=== PATIENT | female | born 1995 | race Caucasian/White ===

== ENCOUNTER 2017-05-15 23:29 | Emergency (ER) | payer SELFPAY ==
[2017-05-16] MEDS ORDERED: IPRATROPIUM/ALBUTEROL 0.5-2.5 MG/3 ML AMPUL NEB ONE (00:08)
[2017-05-16] MEDS ORDERED: KETOROLAC TROMETHAMINE 60 MG/2 ML SDV IM ONE (00:08)
--- NOTE | 2017-05-16 00:12 | ER Document Report ---
ED Flu Like - General Chief Complaint: Flu Symptoms Stated Complaint: BODY ACHES,FEVER Time Seen by Provider: 05/16/17 00:02 Mode of Arrival: Ambulatory Information source: Patient TRAVEL OUTSIDE OF THE [place] IN LAST 30 DAYS: No - HPI Onset: Other - 3 days Timing/Duration: Sudden Quality of pain: Achy, Burning Severity: Moderate Notes: Patient arrives with complaints of "flulike symptoms". Patient states that for the last 3 days she has had fever, body aches, fatigue, nausea, cough, sore throat. She has vomited a few times, but denies any vomiting today. She denies any abdominal pain. She denies any rashes. States that she occasionally has some chest pain when she coughs or takes a deep breath. She denies any significant shortness of breath. She denies any recent long trips, recent surgeries, leg pain or leg swelling, hormones, history of cancer, history of DVT or PE. She is PERC rule negative for PE. She denies any dysuria or hematuria. She denies any significant headache, blurred vision, numbness tingling or weakness. She denies any other complaints at this time. - Related Data Allergies/Adverse Reactions: No Known Allergies Allergy (Verified 04/02/14 22:26) Past Medical History - Social History Smoking Status: Current Every Day Smoker Family History: CAD, CVA, DM, Hyperlipidemia, Hypertension, Malignancy, Thyroid Disfunction Pulmonary Medical History: Reports: Hx Asthma - Childhood Renal/ Medical History: Reports: Hx Ovarian Cysts GI Medical History: Reports: Hx Gastroesophageal Reflux Disease Musculoskeltal Medical History: Reports Hx Arthritis Past Surgical History: Reports: Hx Adenoidectomy, Hx Oral Surgery, Hx Tonsillectomy - Immunizations Immunizations up to date: Yes Hx Diphtheria, Pertussis, Tetanus Vaccination: Yes Review of Systems - Review of Systems -: Yes All other systems reviewed and negative Physical Exam - Vital signs Vitals: Temp 98.6 F 05/16/17 01:15 - Notes Notes: GENERAL: alert, cooperative, nontoxic, no distress. HEAD: normocephalic, atraumatic EYES: conjunctiva pink without discharge, no external redness or swelling. EARS: no external swelling, no external redness, no mastoid redness, swelling, tenderness. Ear canals are clear without swelling or drainage. TMs pearly arzola , no redness, no bulging, normal landmarks, no perforation. NOSE: atraumatic, no external swelling. clear rhinorrhea noted. MOUTH/THROAT: mucous membranes moist and pink, posterior pharynx without erythema, swelling, exudate. No trismus or drooling. NECK: soft, supple, full range of motion, no meningismus. CHEST: no distress, lungs clear and equal throughout. No wheezing, rales, rhonchi. Diminished expiratory phase noted. CARDIAC: regular rate and rhythm, no murmur, normal capillary refill, normal pulses. No peripheral edema noted. BACK: full range of motion, no CVA tenderness. EXTREMITIES: full range of motion of all extremities. No redness, no swelling. NEURO: alert and oriented &Ox3, no focal deficits, full range of motion of all extremities. PYSCH: appropriate mood, affect. Patient is cooperative. SKIN: pink, warm, dry, no rash. Course - Re-evaluation Re-evalutation: 05/16/17 01:33 Patient is nontoxic appearing with stable vitals. The patient arrives with flulike symptoms for the last several days. She has a benign nontoxic exam. She is afebrile here. She has no PE risk factors and is PERC rule negative and PE is very unlikely in this patient. Strep, influenza were negative. Chest x- ray shows no pneumonia. She states that she feels somewhat better after her breathing treatments. Patient likely has bronchitis and will be discharged home with a prescription for albuterol, prednisone, Tessalon. Instructions to follow-up if not improved in the next 4-5 days, sooner for worsening symptoms, guilty breathing, persistent vomiting, or for any further concerns. The patient is noted to have elevated blood pressure during today's emergency department visit. The patient was informed of this finding. The patient was instructed that this may be related to pre-hypertension and requires further evaluation with a primary care provider. The patient has no hypertensive symptoms at this time. The patient's emergency department workup and current diagnosis were explained to the patient and or family. Follow-up instructions were provided. Medications if prescribed were discussed. Instructions for when to return to the emergency department including specific worrisome symptoms were discussed with the patient and/or family. - Vital Signs Vital signs: Temp Pulse Resp BP Pulse Ox 98.6 F 05/16/17 01:15 - Diagnostic Test Radiology reviewed: Image reviewed, Reports reviewed - Negative chest x-ray Discharge - Discharge Clinical Impression: Bronchitis Condition: Stable Disposition: HOME, SELF-CARE Instructions: Bronchitis ([facility]) Additional Instructions: Take medications as prescribed. Drink plenty of fluids. Stop smoking. Follow- up if not better in days, sooner for worsening symptoms, high fever, difficulty breathing, persistent vomiting, or any further concerns. Your blood pressure was elevated during today's visit. Have this rechecked with your doctor. Prescriptions: Benzonatate [Tessalon Perle 100 mg Capsule] 100 mg PO Q8HP PRN #20 cap PRN Reason: Albuterol Sulfate [Proair HFA Inhalation Aerosol 8.5 gm MDI] 2 puff IH Q4H PRN # 1 mdi PRN Reason: Prednisone [Deltasone 20 mg Tablet] 3 tab PO DAILY 5 Days tablet Forms: Elevated Blood Pressure, Smoking Cessation Education Referrals: [facility] [Provider Group] - Follow up as needed
--- NOTE | 2017-05-16 01:06 | RADIOLOGY REPORT (SQ) ---
EXAM DESCRIPTION: CHEST PA/LAT CLINICAL HISTORY: 21 years, Female, cough, fever COMPARISON: None. FINDINGS: Normal lung volume, clear parenchyma, normal cardiac silhouette, and intact bony thorax. IMPRESSION: No acute cardiopulmonary findings.
[2017-05-16 01:29] LABS: A TYPE INFLUENZA AG NEGATIVE (NEGATIVE); B INFLUENZA AG NEGATIVE (NEGATIVE)
[2017-05-16] MEDS ORDERED: PREDNISONE 20 MG TABLET PO ONE (01:33)
[2017-05-16 01:51] VITALS: BP 128/72
== END 2017-05-16 01:52 | disposition home or self-care (01) ==
LOC: ER 23:29
DX: J40 Bronchitis, not specified as acute or chronic (principal); M79.1 Myalgia; R11.0 Nausea; F17.200 Nicotine dependence, unspecified, uncomplicated
CPT/HCPCS: 94640; 99283; 96372; 87070; 87880; 87804; 71046; J1885; J7512; J7620

== ENCOUNTER 2017-07-17 18:05 | Emergency (ER) | payer SELFPAY ==
[2017-07-17 18:15] VITALS: BP 136/73
[2017-07-17] MEDS ORDERED: IBUPROFEN 600 MG TABLET PO ONE (18:22)
--- NOTE | 2017-07-17 18:27 | ER Document Report ---
ED ENT - General Chief Complaint: Ear Pain Stated Complaint: EAR PAIN Time Seen by Provider: 07/17/17 18:17 Mode of Arrival: Ambulatory Information source: Patient TRAVEL OUTSIDE OF THE [place] IN LAST 30 DAYS: No - HPI Patient complains to provider of: Ear problem Notes: Patient is here with complaints of left ear pain for the last few days. She has had some nasal congestion over the last several days and over the last few days has had left ear pain and some mild decreased hearing in this year. She denies fevers. She denies injury. She denies any recent trauma or injuries. She has not been swimming. She denies any drainage from the ear. No nausea, vomiting, diarrhea. No chest pain or shortness of breath. No rash. No redness or swelling to the external ear. Nothing makes his symptoms better or worse. She denies any other complaints at this time. - Related Data Allergies/Adverse Reactions: No Known Allergies Allergy (Verified 04/02/14 22:26) Past Medical History - Social History Smoking Status: Current Every Day Smoker Family History: CAD, CVA, DM, Hyperlipidemia, Hypertension, Malignancy, Thyroid Disfunction Pulmonary Medical History: Reports: Hx Asthma - Childhood Renal/ Medical History: Reports: Hx Ovarian Cysts. Denies: Hx Peritoneal Dialysis GI Medical History: Reports: Hx Gastroesophageal Reflux Disease Musculoskeltal Medical History: Reports Hx Arthritis Past Surgical History: Reports: Hx Adenoidectomy, Hx Oral Surgery, Hx Tonsillectomy - Immunizations Immunizations up to date: Yes Hx Diphtheria, Pertussis, Tetanus Vaccination: Yes Review of Systems - Review of Systems -: Yes All other systems reviewed and negative Physical Exam - Vital signs Vitals: Temp Pulse Resp BP Pulse Ox 98.0 F 90 20 136/73 H 100 07/17/17 18:13 07/17/17 18:13 07/17/17 18:13 07/17/17 18:13 07/17/17 18:13 - Notes Notes: GENERAL: alert, cooperative, nontoxic, no distress. HEAD: normocephalic, atraumatic EYES: conjunctiva pink without discharge, no external redness or swelling. EARS: no external swelling, no external redness, no mastoid redness, swelling, tenderness. Ear canals are clear without swelling or drainage. TMs pearly arzola , no redness, no bulging, normal landmarks, no perforation. Slight retraction of the left TM. NOSE: atraumatic, no external swelling. clear rhinorrhea noted. MOUTH/THROAT: mucous membranes moist and pink, posterior pharynx without erythema, swelling, exudate. No trismus or drooling. NECK: soft, supple, full range of motion, no meningismus. CHEST: no distress, lungs clear and equal throughout. No wheezing, rales, rhonchi. CARDIAC: regular rate and rhythm, no murmur, normal capillary refill, normal pulses. No peripheral edema noted. BACK: full range of motion, no CVA tenderness. EXTREMITIES: full range of motion of all extremities. No redness, no swelling. NEURO: alert and oriented A&O3, no focal deficits, full range of motion of all extremities. PYSCH: appropriate mood, affect. Patient is cooperative. SKIN: pink, warm, dry, no rash. Course - Re-evaluation Re-evalutation: 07/17/17 18:23 Patient is nontoxic appearing with stable vitals. She is here with left ear pain and slight decreased hearing. She has had some nasal congestion for the last several days. On exam her left TM is retracted with no perforation no erythema he has no tenderness to palpation of the external ear or auricle and the mastoid is normal. It appears that the patient likely has some eustachian tube dysfunction. She will be discharged home with Flonase and Claritin-D. Instructions to take Tylenol Motrin as needed for pain. Drink plenty of fluids. Follow-up if not better in the next 3-5 days, sooner for worsening pain , fever, redness, drainage, swelling around the outside ear, or for any further concerns. The patient's emergency department workup and current diagnosis were explained to the patient and or family. Follow-up instructions were provided. Medications if prescribed were discussed. Instructions for when to return to the emergency department including specific worrisome symptoms were discussed with the patient and/or family. The patient is noted to have elevated blood pressure during today's emergency department visit. The patient was informed of this finding. The patient was instructed that this may be related to pre-hypertension and requires further evaluation with a primary care provider. The patient has no hypertensive symptoms at this time. - Vital Signs Vital signs: Temp Pulse Resp BP Pulse Ox 98.0 F 90 20 136/73 H 100 07/17/17 18:13 07/17/17 18:13 07/17/17 18:13 07/17/17 18:13 07/17/17 18:13 Discharge - Discharge Clinical Impression: Otalgia of left ear Eustachian tube dysfunction Qualifiers: Laterality: left Qualified Code(s): H69.82 - Other specified disorders of Eustachian tube, left ear Condition: Stable Disposition: HOME, SELF-CARE Instructions: Upper Respiratory Illness ([facility]) Additional Instructions: Take medications as prescribed. Tylenol Motrin as needed for pain. Follow-up if not better in the next 3-5 days, sooner for worsening pain, fever, redness or swelling around the outside of the ear, persistent vomiting, or for any further concerns. Your blood pressure was elevated during today's visit. Have this rechecked with your doctor. Prescriptions: Desloratadine/Pseudoephedrine [Clarinex-D 12 Hour Tablet] 1 each PO BID PRN #14 tbmp.12hr PRN Reason: Fluticasone Propionate [Flonase Nasal [place] 50 Mcg/[place] 16 gm] 1 spray NASL Q12 #1 inhaler Forms: Elevated Blood Pressure, Smoking Cessation Education, Return to Work Referrals: [facility] [Provider Group] - Follow up as needed
== END 2017-07-17 18:37 | disposition home or self-care (01) ==
LOC: ER 18:05
DX: H69.92 Unspecified Eustachian tube disorder, left ear (principal); H92.02 Otalgia, left ear; H91.92 Unspecified hearing loss, left ear; R09.81 Nasal congestion; F17.200 Nicotine dependence, unspecified, uncomplicated; R03.0 Elevated blood-pressure reading, without diagnosis of hypertension
CPT/HCPCS: 99282

== ENCOUNTER 2018-05-22 14:32 | Emergency (ER) | payer SELFPAY ==
--- NOTE | 2018-05-22 16:41 | ER Document Report ---
ED Medical Screen (RME) - General Chief Complaint: Abscess Stated Complaint: ABSCESS Time Seen by Provider: 05/22/18 16:25 Notes: 22-year-old female patient reports noticing a painful swelling on her labia yesterday which is worse today. She has never had a labial Bartholin's type cyst before. I have greeted and performed a rapid initial assessment of this patient. A comprehensive ED assessment and evaluation of the patient, analysis of test results and completion of the medical decision making process will be conducted by additional ED providers. TRAVEL OUTSIDE OF THE [place] IN LAST 30 DAYS: No - Related Data Allergies/Adverse Reactions: No Known Allergies Allergy (Verified 05/22/18 14:33) Past Medical History - Social History Chew tobacco use (# tins/day): No Frequency of alcohol use: None Drug Abuse: None Pulmonary Medical History: Reports: Hx Asthma - Childhood Renal/ Medical History: Reports: Hx Ovarian Cysts. Denies: Hx Peritoneal Dialysis GI Medical History: Reports: Hx Gastroesophageal Reflux Disease Musculoskeltal Medical History: Reports Hx Arthritis Past Surgical History: Reports: Hx Adenoidectomy, Hx Oral Surgery, Hx Tonsillectomy - Immunizations Immunizations up to date: Yes Hx Diphtheria, Pertussis, Tetanus Vaccination: Yes Physical Exam - Vital signs Vitals: Temp Pulse Resp BP Pulse Ox 98.2 F 88 18 129/73 H 100 05/22/18 14:36 05/22/18 14:36 05/22/18 14:36 05/22/18 14:36 05/22/18 14:36 Course - Vital Signs Vital signs: Temp Pulse Resp BP Pulse Ox 98.2 F 88 16 129/73 H 100 05/22/18 14:36 05/22/18 14:36 05/22/18 16:25 05/22/18 14:36 05/22/18 14:36
[2018-05-22] MEDS ORDERED: HYDROCODONE/ACETAMINOPHEN 5-325 MG (6 TAB/ER DISP) PO PRN (20:23)
--- NOTE | 2018-05-22 20:26 | ER Document Report ---
ED Skin Rash/Insect Bite/Abscs - General Chief Complaint: Abscess Stated Complaint: ABSCESS Time Seen by Provider: 05/22/18 16:25 Notes: Patient is a 22-year-old female that comes to the emergency department for chief complaint of an abscess on the left labia on the outer aspect. Symptoms have been worsening over the past 24 hours, she states now it is painful to sit. She denies fever or chills, nausea or vomiting, vaginal discharge or bleeding. She denies history of the same. She states that since she arrived the area actually popped open and is currently draining. LMP within the past month. Denies any daily medications or reported past medical history. TRAVEL OUTSIDE OF THE [place] IN LAST 30 DAYS: No - Related Data Allergies/Adverse Reactions: No Known Allergies Allergy (Verified 05/22/18 14:33) Past Medical History - General Information source: Patient - Social History Smoking Status: Never Smoker Chew tobacco use (# tins/day): No Frequency of alcohol use: None Drug Abuse: None Lives with: Family Family History: CAD, CVA, DM, Hyperlipidemia, Hypertension, Malignancy, Thyroid Disfunction Patient has suicidal ideation: No Patient has homicidal ideation: No Pulmonary Medical History: Reports: Hx Asthma - Childhood Renal/ Medical History: Reports: Hx Ovarian Cysts. Denies: Hx Peritoneal Dialysis GI Medical History: Reports: Hx Gastroesophageal Reflux Disease Musculoskeletal Medical History: Reports Hx Arthritis Past Surgical History: Reports: Hx Adenoidectomy, Hx Oral Surgery, Hx Tonsillectomy - Immunizations Immunizations up to date: Yes Hx Diphtheria, Pertussis, Tetanus Vaccination: Yes Review of Systems - Review of Systems Constitutional: No symptoms reported EENT: No symptoms reported Cardiovascular: No symptoms reported Respiratory: No symptoms reported Gastrointestinal: No symptoms reported Genitourinary: No symptoms reported Female Genitourinary: See HPI Musculoskeletal: No symptoms reported Skin: See HPI Hematologic/Lymphatic: No symptoms reported Neurological/Psychological: No symptoms reported Physical Exam - Vital signs Vitals: Temp Pulse Resp BP Pulse Ox 98.2 F 88 18 129/73 H 100 05/22/18 14:36 05/22/18 14:36 05/22/18 14:36 05/22/18 14:36 05/22/18 14:36 - Notes Notes: GENERAL: Alert, interacts well. No acute distress. HEAD: Normocephalic, atraumatic. EYES: Pupils equal, round, and reactive to light. Extraocular movements intact. ENT: Oral mucosa moist, tongue midline. Oropharynx unremarkable. Airway patent. Nares patent, no nasal septal hematoma, TM's intact. NECK: Full range of motion. Supple. Trachea midline. LUNGS: Clear to auscultation bilaterally, no wheezes, rales, or rhonchi. No re spiratory distress. HEART: Regular rate and rhythm. No murmur ABDOMEN: Soft, non-tender. Non-distended. Bowel sounds present in all 4 quadrants. GENITOURINARY: Left labia with erythema, slight swelling, there is an opening with small amount of purulent drainage coming out, remaining skin examination and genital examination unremarkable. Lucero WAYNE present at bedside. EXTREMITIES: Moves all 4 extremities spontaneously. No edema, normal radial and dorsalis pedis pulses bilaterally. No cyanosis. BACK: no cervical, thoracic, lumbar midline tenderness. No saddle anesthesia, normal distal neurovascular exam. NEUROLOGICAL: Alert and oriented x3. Normal speech. [cranial nerves II through XII grossly intact]. PSYCH: Normal affect, normal mood. SKIN: Warm, dry, normal turgor. No rashes or lesions noted. Course - Re-evaluation Re-evalutation: Patient with what appears to be an abscess but this is opened and is already draining. This was expressed with 2 x 2's and had a small amount of drainage followed by a small amount of bloody drainage. There is not a significant area of induration. I do not suspect additional abscess, there is no other concerning finding on exam. Because abscesses are been drained, placing patient on antibiotics, using doxycycline because of the location. Discussed expectations, follow-up, treatment, and return precautions with patient. She states understanding and agreement. - Vital Signs Vital signs: Temp Pulse Resp BP Pulse Ox 98.5 F 79 16 122/88 H 100 05/22/18 20:30 05/22/18 20:30 05/22/18 20:30 05/22/18 20:30 05/22/18 20:30 Discharge - Discharge Clinical Impression: Abscess of labia Condition: Stable Disposition: HOME, SELF-CARE Additional Instructions: The abscess opened on its own and it drained. He had been placed on doxycycline antibiotic, take as prescribed. Take ibuprofen 600 mg every 6 hours for pain if needed, if necessary take the stronger pain medication provided (Milo). I recommend warm compresses to the area, clean the area regularly. Follow-up with primary care. Return for any concerning symptoms including developing or spreading swelling, redness, fever/chills, vomiting, or any other concerning symptoms. Prescriptions: Doxycycline Hyclate 100 mg PO BID #14 capsule Forms: Return to Work
[2018-05-22] MEDS ORDERED: DOXYCYCLINE HYCLATE 100 MG TABLET PO ONE (20:28)
[2018-05-22 20:42] VITALS: BP 122/88
== END 2018-05-22 20:42 | disposition home or self-care (01) ==
LOC: ER 14:32
DX: N76.4 Abscess of vulva (principal); J45.909 Unspecified asthma, uncomplicated
CPT/HCPCS: 99282

== ENCOUNTER 2019-10-12 10:33 | Emergency (ER) | payer SELFPAY ==
--- NOTE | 2019-10-12 10:41 | ER Document Report ---
HPI - HPI Time Seen by Provider: 10/12/19 10:35 Context: Patient is a 23-year-old female who presents the emergency department with a chief complaint of tooth pain to tooth #2. Patient states that she has an appointment with a dentist in 2 weeks. States that it hurts to eat. - ROS Systems Reviewed and Negative: Yes All other systems reviewed and negative - CONSTITUTIONAL Constitutional: DENIES: Fever, Chills - EENT EENT: DENIES: Sore Throat Notes: Tooth pain, see HPI. - REPRODUCTIVE Reproductive: DENIES: : - DERM Skin Color: Normal Skin Problems: None Past Medical History - General Information source: Patient - Social History Smoking Status: Current Every Day Smoker Family History: CAD, CVA, DM, Hyperlipidemia, Hypertension, Malignancy, Thyroid Disfunction Pulmonary Medical History: Reports: Hx Asthma - Childhood Renal/ Medical History: Reports: Hx Ovarian Cysts. Denies: Hx Peritoneal Dialysis GI Medical History: Reports: Hx Gastroesophageal Reflux Disease Musculoskeletal Medical History: Reports Hx Arthritis Past Surgical History: Reports: Hx Adenoidectomy, Hx Oral Surgery, Hx Tonsillectomy - Immunizations Immunizations up to date: Yes Hx Diphtheria, Pertussis, Tetanus Vaccination: Yes Vertical Provider Document - CONSTITUTIONAL Agree With Documented VS: Yes Exam Limitations: No Limitations General Appearance: No Apparent Distress - INFECTION CONTROL TRAVEL OUTSIDE OF THE [place] IN LAST 30 DAYS: No - HEENT HEENT: Atraumatic, Normocephalic, PERRLA Mouth Diagram: 1 - Dental cavity noted on side of tooth. - NECK Neck: Normal Inspection - RESPIRATORY Respiratory: Breath Sounds Normal, No Respiratory Distress - CARDIOVASCULAR Cardiovascular: Regular Rate, Regular Rhythm Pulses: Normal: Radial - MUSCULOSKELETAL/EXTREMETIES Musculoskeletal/Extremeties: FROM - NEURO Level of Consciousness: Awake, Alert, Appropriate Motor/Sensory: No Motor Deficit, No Sensory Deficit - DERM Integumentary: Warm, Dry, No Rash Course - Re-evaluation Re-evalutation: 10/12/19 10:39 Patient's physical exam and history is most consistent with a infected tooth. Patient is able to swallow, no facial swelling noted, airway is patent, vital signs are normal. I do not suspect Karson's angina, peritonsilar abscess, or airway obstruction. The patient will be started on oral antibiotics. I have given the patient education on their antibiotics. Patient was given instructions to follow-up with a dentist this week. Return precautions were given. Verbal discharge instructions were given. Patient verbalized understanding. Patient is stable for discharge. Discharge - Discharge Clinical Impression: Toothache Condition: Stable Disposition: HOME, SELF-CARE Instructions: Penicillin V K ([facility]), Toothache ([facility]) Additional Instructions: You have been seen in the emergency department for a toothache. You may take ibuprofen 600 mg and Tylenol 1000 mg every 6 hours as needed for the pain. You have also been prescribed antibiotics. Please take the antibiotics as prescrib ed, even if you start to feel better. If you develop a fever greater than 100.4 F, or have any symptoms that are worrisome to you, please return to the emergency department. Please follow-up with a dentist this week in regards to your visit. Cut back 1 cigarette a week and in 4-5 weeks you will be free from smoking. Prescriptions: Penicillin V Potassium [Penicillin Vk 500 mg Tablet] 500 mg PO TID #30 tablet Forms: Smoking Cessation Education
[2019-10-12 10:43] VITALS: BP 128/72
== END 2019-10-12 10:40 | disposition home or self-care (01) ==
LOC: ER 10:33
DX: K08.89 Other specified disorders of teeth and supporting structures (principal); F17.200 Nicotine dependence, unspecified, uncomplicated; J45.909 Unspecified asthma, uncomplicated
CPT/HCPCS: 99282

== ENCOUNTER 2020-05-17 18:23 | Emergency (ER) | payer OTHER ==
[2020-05-17 18:29] VITALS: BP 139/76
[2020-05-17] MEDS ORDERED: DIPH/PERTUSS(ACELL)/TETANUS VAC/PF 0.5 ML SYR (>=10YO) IM ONE (18:36)
[2020-05-17] MEDS ORDERED: NAPROXEN 250 MG TABLET PO ONE (18:36)
--- NOTE | 2020-05-17 18:39 | ER Document Report ---
ED Animal Bite - General Chief Complaint: Dog Bite Stated Complaint: DOG BITE/RIGHT ARM Time Seen by Provider: 05/17/20 18:33 Notes: CHIEF COMPLAINT: Dog bite right upper arm yesterday HPI: 24-year-old female presenting for a dog bite to the underside of the right upper arm yesterday. 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 Patient complains of pain and bruising to the area. She is not sure if the dog is up-to-date on his vaccinations. She states she is not up-to-date on her tetanus vaccination. ROS: See HPI - all other systems were reviewed and are otherwise negative Constitutional: no fever Integumentary: Positive bruising Allergy: no hives Musculoskeletal: + extremity pain or swelling Neurological: no numbness/tingling, no weakness MEDICATIONS: I agree with the patient medications as charted by the RN. ALLERGIES: I agree with the allergies as charted by the RN. PAST MEDICAL HISTORY/PAST SURGICAL HISTORY: Reviewed and agree as charted by RN. SOCIAL HISTORY: Reviewed and agree as charted by RN. FAMILY HISTORY: No significant familial comorbid conditions directly related to patient complaint EXAM: Reviewed vital signs as charted by RN. CONSTITUTIONAL: Alert and oriented and responds appropriately to questions. Well-appearing; well-nourished HEAD: Normocephalic; atraumatic EYES: Conjunctivae clear, sclerae non-icteric ENT: normal nose; no rhinorrhea; moist mucous membranes NECK: Supple without meningismus CARD: symmetric distal pulses RESP: Normal chest excursion without splinting or tachypnea ABD/GI: non-distended BACK: The back appears normal EXT: Normal ROM in all joints; no cyanosis, no effusions, no edema. There is a bruised area on the underside of the right upper arm measuring approximately 9 cm x 8 cm. There is a very superficial abrasion along the inner edge of the bruised area. No visible or palpable foreign bodies. SKIN: Normal color for age and race; warm; dry; good turgor NEURO: Moves all extremities equally; Motor and sensory function intact PSYCH: The patient's mood and manner are appropriate. Grooming and personal hygiene are appropriate. MDM: 24-year-old female with a dog bite to the inner upper right arm. There is a superficial abrasion no indication for antibiotics or imaging today. Will update patient's tetanus status. Animal control form will be filled out by nursing to make sure that the animal in question is quarantined or has rabies vaccinations up-to-date patient will otherwise follow-up through Workmen's Compensation TRAVEL OUTSIDE OF THE [place] IN LAST 30 DAYS: No - Related Data Allergies/Adverse Reactions: No Known Allergies Allergy (Verified 10/12/19 10:39) Past Medical History - Social History Smoking Status: Current Every Day Smoker Frequency of alcohol use: Rare Drug Abuse: None Family History: CAD, CVA, DM, Hyperlipidemia, Hypertension, Malignancy, Thyroid Disfunction Pulmonary Medical History: Reports: Hx Asthma - Childhood Renal/ Medical History: Reports: Hx Ovarian Cysts. Denies: Hx Peritoneal Dialysis GI Medical History: Reports: Hx Gastroesophageal Reflux Disease Musculoskeletal Medical History: Reports Hx Arthritis Past Surgical History: Reports: Hx Adenoidectomy, Hx Oral Surgery, Hx Tonsillectomy - Immunizations Immunizations up to date: Yes Hx Diphtheria, Pertussis, Tetanus Vaccination: Yes Physical Exam - Vital signs Vitals: Temp Pulse Resp BP Pulse Ox 99.0 F 90 20 139/76 H 100 05/17/20 18:27 05/17/20 18:27 05/17/20 18:27 05/17/20 18:27 05/17/20 18:27 Course - Vital Signs Vital signs: Temp Pulse Resp BP Pulse Ox 99.0 F 90 20 139/76 H 100 05/17/20 18:27 05/17/20 18:27 05/17/20 18:27 05/17/20 18:27 05/17/20 18:27 - Laboratory Results Critical Laboratory Results Reviewed: No Critical Results - Radiology Results Critical Radiology Results Reviewed: No Critical Results Discharge - Discharge Clinical Impression: Dog bite of right arm Qualifiers: Encounter type: initial encounter Qualified Code(s): S41.151A - Open bite of right upper arm, initial encounter; W54.0XXA - Bitten by dog, initial encounter Condition: Stable Disposition: HOME, SELF-CARE Additional Instructions: Use ice on the inner upper arm twice daily for 5 to 10 minutes at a time without placing ice directly on the skin to help with the bruising. Take naproxen consistently for pain. After 2 days you may use warm heat on the upper arm. Follow-up through your Workmen's Compensation provider with your employer and also with animal control regarding the animal's rabies status. You have 10 days to have this accomplished Prescriptions: Naproxen 500 mg PO BID PRN #14 tablet PRN Reason:
== END 2020-05-17 18:54 | disposition home or self-care (01) ==
LOC: ER 18:23
DX: S41.151A Open bite of right upper arm, initial encounter (principal); W54.0XXA Bitten by dog, initial encounter; Y99.0 Civilian activity done for income or pay; F17.200 Nicotine dependence, unspecified, uncomplicated
CPT/HCPCS: 90471; 90715; 99283